=== PATIENT | female | born 1935 | race Caucasian/White ===

== ENCOUNTER 2025-06-29 12:40 | Emergency (ER) | payer MEDICARE, SELFPAY ==
--- NOTE | ~2025-06-29 | CT_ITS ---
EXAMINATION: CT ABDOMEN AND PELVIS WITHOUT CONTRAST CLINICAL INFORMATION: Right flank pain COMPARISON: None available. TECHNIQUE: Multidetector volumetric imaging was performed from the superior aspect of the liver through the pubic symphysis. Sagittal and coronal reformatted images were obtained on the technologist's workstation. This CT examination was performed using dose optimization techniques as appropriate, variously including the following: *Automated exposure control *Adjustment of mA and/or kV according to patient size (this includes techniques or standardized protocols for targeted exams where dose is matched to indication/reason for exam; i.e. extremities or head) *Use of iterative reconstruction technique FINDINGS: LUNG BASES: Reticular and groundglass opacities are present in bilateral posterior lung bases probably related to atelectasis. LIVER, GALLBLADDER, AND BILIARY TREE: The liver is normal in size, shape, and attenuation. No focal hepatic lesion or biliary ductal dilatation is present. The gallbladder is unremarkable with no evidence of radiopaque gallstones, gallbladder wall thickening, or obvious pericholecystic inflammatory changes. PANCREAS: There appears to be a cystic lesion in the head of the pancreas measures 3.0 x 2.7 x 4.2 cm. There is atrophy of the neck region of the pancreas. There is a second circumscribed cystic lesion on the deep surface of the pancreatic tail 1.2 cm in diameter. SPLEEN: Unremarkable. ADRENAL GLANDS: Unremarkable. KIDNEYS AND URETERS: There is a lower pole the left kidney is mixed density, soft tissue and fat density, 13 mm diameter. There is a 2 mm nonobstructing stone in the mid right kidney. BLADDER: Unremarkable. GASTROINTESTINAL TRACT: Numerous pseudodiverticula are present in the sigmoid colon. The appendix is not identified. There is a small hiatal involving gastric cardia. ABDOMINAL WALL: No significant hernia is appreciated. LYMPH NODES: Normal. VASCULAR: Moderate to severe vascular calcifications are evident. Infrarenal abdominal aorta demonstrates focal fusiform dilation measuring 3 cm. PELVIC VISCERA: Uterus is surgically absent. The ovaries demonstrate coarse calcifications. OSSEOUS STRUCTURES: Severe degenerative changes are present in the imaged spine. There is also mild levoscoliosis. There is severe degenerative change in the left hip joint with axial joint space narrowing and marginal osteophytes. CT/CT abdomen pelvis wo IV con IMPRESSION: There is a 2 mm nonobstructing stone in the mid right kidney. The appendix is not clearly identified. No inflammatory changes are present around the cecum. There are 2 cystic lesions in pancreas, 4.2 cm lesion in the head and a 1.2 cm lesion in the tail. Follow up nonemergent pancreatic MRI without and with IV contrast. Mild abdominal aortic aneurysm. There is short focal fusiform dilation of the infrarenal abdominal aorta measuring 3.0 cm. Sigmoid diverticulosis without inflammatory changes. Densities in the dependent portions of the lung bases is probably related to atelectasis, correlate for signs and symptoms to rule out pneumonia. Fleischner guidelines were followed. Electronically signed by: Ashutosh Nieves MD 06/29/2025 05:21 PM EDT
[2025-06-29 13:11] VITALS: BP 152/72; PULSE 70; RESP 16; TEMP 36.3; O2SAT 96; BMI 31.5
--- NOTE | 2025-06-29 13:19 | ED.GENADULT ---
HPI - General Adult General Chief complaint: Abdominal Pain Stated complaint: kidney stones Time Seen by Provider: 06/29/25 16:02 Source: patient, RN notes reviewed and old records reviewed Mode of arrival: ambulatory Limitations: no limitations History of Present Illness ED Provider: Terrell NOVAK narrative: 89-year-old female presents for evaluation of right lower back/hip pain for the last 3 days. She denies any trauma, falls or heavy lifting. She denies doing anything out of the ordinary. Her pain radiates somewhat down into the right upper leg/thigh. Pain is constant but worse with movement. Denies any fevers, chills nausea vomiting, diarrhea pain Denies any burning with urination or blood in the urine she reports that she had an incidental finding of a kidney stone a few months ago on a CT scan she is concerned that this has been causing her pain today she took some Tylenol without any significant improvement Related Data Previous Rx's ?Medication ?Instructions ?Recorded cyclobenzaprine 5 mg tablet 5 mg PO TID PRN muscle spasm #10 06/29/25 tabs Allergies Allergy/AdvReac Type Severity Reaction Status Date / Time No Known Allergies Allergy Verified 06/29/25 13:13 Review of Systems Constitutional: Constitutional: Denies body ache(s), Denies chills, Denies fever(s) and Denies headache(s) Eyes: Eyes: Denies blurry vision ENT: Denies vertigo, Denies dizziness, Denies dry mouth and Denies headache(s) Cardiovascular: Cardiovascular: Denies chest pain and Denies dyspnea on exertion Respiratory: Respiratory: Denies cough and Denies dyspnea on exertion Gastrointestinal: Gastrointestinal: Reports abdominal pain and Denies vomiting Genitourinary: Genitourinary: Denies hematuria, Denies difficulty voiding, Denies dysmenorrhea, Denies dysuria, Denies pelvic pain and Reports flank pain Musculoskeletal: Musculoskeletal: Reports back pain Integumentary/Breasts: Skin/Breast: Denies rash Neurologic: Denies vertigo, Denies dizziness and Denies headache(s) [facility] Social History Social History Smoked in Last 30 Days: No Use of substances other than those prescribed or required for medical reasons: No Advance Directives: No Advance Directives Information Provided: Yes Do you have a plan to hurt others: No Plan Physical Exam ED Vital Signs: Vital Signs - 24 hr 06/29/25 13:11 10/27/25 16:24 06/29/25 17:51 Temperature 97.3 F 97.6 F Pulse Rate 70 69 94 Respiratory Rate 16 18 16 Blood Pressure 152/72 H 155/71 H 139/64 Pulse Oximetry 96 95 94 Oxygen Delivery Method Room Air Room Air Room Air BMI result Body Mass Index 31.5 Const General: healthy appearing, comfortable, no acute distress, alert and awake Nutritional Appearance: well nourished Orientation/consciousness: patient oriented x3 HENMT Head: Yes normocephalic and Yes atraumatic Eyes Eyelids: Yes eyelids normal Conjunctivae: conjunctivae normal Sclerae: sclerae normal Corneas: corneas normal Pupils: Equal, round and reactive pupils present EOM: EOMs intact bilaterally Neck Neck: Yes full ROM Resp Effort & Inspection: normal respiratory effort, able to speak in complete sentences and not labored Cardio Rate: regular rate Rhythm: regular rhythm GI Other: positive CVA tenderness on right Inspection: No distended Palpation (GI): Soft to palpation, not firm, Tenderness to palpation present (GI) in the RLQ; not in the LLQ, not in the LUQ and not in the RUQ, no guarding and not rigid General: Yes CVA tenderness on the right Back/Spine/Pelvis Other: there is some right lumbar paraspinous region tenderness. No vertebral tenderness. No step-offs or deformities. Negative straight leg raise Back: CVA tenderness Skin General skin exam: elasticity normal Neuro General: patient oriented x3 Cranial nerves: Yes Equal, round and reactive pupils present and Yes Bilaterally intact EOM present Cognition (Neuro): normal cognition Extrem Other: mild tenderness to palpation of the right hip without deformity. Moving all extremities well without any obvious deformities Course Course Course Narrative: Rapid medical examination performed in triage by Erica Marroquin PA-C. Patient is an 89 year old assigned female at presenting to the emergency department with right flank pain. Detailed physical exam and review of systems are deferred to the computational sciences professor. Labs ordered. Patient placed back in the waiting room pending room availability and results. Reevaluation(s) Reevaluation #1: patient's CT scan does not show any acute findings to explain her pain. She does have multiple incidental findings including a lesion in the pancreas, a 3 cm aortic aneurysm, nonobstructing renal calculi. All these were discussed with the patient I think her pain is mostly musculoskeletal in origin. The patient be discharged to follow up with outpatient providers. 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 She reports that she has been coughing for 6 months but states that has actually been improving and she is not coughing as much. No fevers, shortness of breath or chills. We will not treat for pneumonia Time: 17:27 Medical Decision Making Medical Decision Making [facility] Narrative: 89-year-old female presents for evaluation of atraumatic right lower back /hip pain. She appears quite comfortable, vital signs are stable. She has some tenderness in the lumbar region, right hip and right lower abdomen. Negative straight leg raise does have some CVA tenderness in the right but I suspect this may be due to muscular origin. In his unlikely that the patient's pain has been constant for 3 days without hematuria and still related to obstructive uropathy. I suspect her pain is more likely a muscle strain, bursitis or possibly even constipation. Her labs are reassuring, no leukocytosis or left shift. No significant anemia. Renal function within normal limits. We will get a CT scan of the abdomen pelvis to better evaluate. Urinalysis shows trace esterase but no bacteria, no hematuria Differential Diagnosis Differential Diagnoses: The differential diagnosis associated with the presentation includes muscle strain Sciatica Hip bursitis Lumbar strain Constipation Obstructive uropathy UTI Cystitis Acute appendicitis less likely Lab Data [facility] Lab Attestation statement: I reviewed the patient's lab results. as above 06/29/25 13:59 06/29/25 14:34 Labs: Lab Results 06/29/25 06/29/25 06/29/25 Range/Units 13:59 14:34 14:46 WBC 7.4 (4.8-10.8) X10*3/uL RBC 4.43 (4.20-5.50) X10*6/uL Hgb 13.3 (12.0-16.0) g/dl Hct 40.3 (37.0-47.0) % MCV 91.0 (80.0-98.0) fL MCH 30.0 (27.0-33.0) pg MCHC 33.0 (31.0-35.0) g/dl RDW 15.1 (11.0-16.0) % Plt Count 165 (160-400) X10*3/uL MPV 11.1 (9.4-12.3) fL Immature Gran % (Auto) 0.4 (0.0-0.4) % Neut % (Auto) 52.4 (45-73) % Lymph % (Auto) 34.4 (20-40) % [place] % (Auto) 10.7 (2-11) % Eos % (Auto) 1.6 (0-4) % Baso % (Auto) 0.5 (0-2) % Lymph # (Auto) 2.5 (1.2-4.9) X10*3/uL [place] # (Auto) 0.8 (0.1-1.2) X10*3/uL Eos # (Auto) 0.1 (0.0-0.4) X10*3/uL Baso # (Auto) 0.0 (0.0-0.2) X10*3/uL Abs Immat Gran (auto) 0.03 (0.00-0.03) X10*3/uL Absolute Neuts (auto) 3.9 (2.0-8.3) x10*3/uL Absolute Nucleated RBC 0.000 (0.0-0.012) X10*3/uL Nucleated RBC % (auto) 0.0 (0.0-0.2) /100WBC Sodium 142 (135-145) mmol/L Potassium 4.2 (3.3-5.1) mmol/L Chloride 106 (96-108) mmol/L Carbon Dioxide 29 (22-29) mmol/L Anion Gap 11 L (12-20) BUN 15 (9-16) mg/dL Creatinine 0.55 (0.5-1.4) mg/dL Estim Creat Clear Calc 72.5 Estimated GFR > 60 Random Glucose 125 H (60-115) mg/dL Calcium 9.2 (8.4-10.2) mg/dL Magnesium 2.0 (1.6-2.6) mg/dL Total Bilirubin 1.0 (0.0-1.0) mg/dL AST 34 H (5-31) U/L ALT 24 (0-31) U/L Alkaline Phosphatase 89 (39-117) U/L Total Protein 7.4 (6.5-8.0) g/dL Albumin 4.4 (3.5-5.0) g/dL Urine Color Yellow Urine Appearance Clear Urine pH 5.5 (5.0-9.0) Ur Specific [place] 1.015 (1.005-1.025) Urine Protein Negative (Neg-Trace) mg/dL Urine Glucose (UA) Negative (Negative) mg/dL Urine Ketones Negative (Negative) mg/dL Urine Blood Negative (Negative) Urine Nitrite Negative (Negative) Ur Leukocyte Esterase Trace H (Negative) Urine RBC 0-2 (0-2) /HPF Urine WBC 0-5 (0-5) /HPF Ur Squamous Epith Cells 0-2 (0-2) /HPF Urine Bacteria None Seen (None Seen) Hyaline Casts 0-2 (0-2) /LPF Radiology Impression Discussion of test interpretation with radiology: I have reviewed the radiologist's reading. Radiologist Impression: FINDINGS: LUNG BASES: Reticular and groundglass opacities are present in bilateral posterior lung bases probably related to atelectasis. LIVER, GALLBLADDER, AND BILIARY TREE: The liver is normal in size, shape, and attenuation. No focal hepatic lesion or biliary ductal dilatation is present. The gallbladder is unremarkable with no evidence of radiopaque gallstones, gallbladder wall thickening, or obvious pericholecystic inflammatory changes. PANCREAS: There appears to be a cystic lesion in the head of the pancreas measures 3.0 x 2.7 x 4.2 cm. There is atrophy of the neck region of the pancreas. There is a second circumscribed cystic lesion on the deep surface of the pancreatic tail 1.2 cm in diameter. SPLEEN: Unremarkable. ADRENAL GLANDS: Unremarkable. KIDNEYS AND URETERS: There is a lower pole the left kidney is mixed density, soft tissue and fat density, 13 mm diameter. There is a 2 mm nonobstructing stone in the mid right kidney. BLADDER: Unremarkable. GASTROINTESTINAL TRACT: Numerous pseudodiverticula are present in the sigmoid colon. The appendix is not identified. There is a small hiatal involving gastric cardia. ABDOMINAL WALL: No significant hernia is appreciated. LYMPH NODES: Normal. VASCULAR: Moderate to severe vascular calcifications are evident. Infrarenal abdominal aorta demonstrates focal fusiform dilation measuring 3 cm. PELVIC VISCERA: Uterus is surgically absent. The ovaries demonstrate coarse calcifications. OSSEOUS STRUCTURES: Severe degenerative changes are present in the imaged spine. There is also mild levoscoliosis. There is severe degenerative change in the left hip joint with axial joint space narrowing and marginal osteophytes. CT/CT abdomen pelvis wo IV con IMPRESSION: There is a 2 mm nonobstructing stone in the mid right kidney. The appendix is not clearly identified. No inflammatory changes are present around the cecum. There are 2 cystic lesions in pancreas, 4.2 cm lesion in the head and a 1.2 cm lesion in the tail. Follow up nonemergent pancreatic MRI without and with IV contrast. Mild abdominal aortic aneurysm. There is short focal fusiform dilation of the infrarenal abdominal aorta measuring 3.0 cm. Sigmoid diverticulosis without inflammatory changes. Densities in the dependent portions of the lung bases is probably related to atelectasis, correlate for signs and symptoms to rule out pneumonia. Fleischner guidelines were followed. Discharge Plan Discharge Clinical Impression: Low back pain Patient Disposition: Home, Self-Care Instructions: Acute Low Back Pain (ED) Additional Instructions: your CT scan did not show any findings to explain your pain. You do have a nonobstructing stone in the right kidney. 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 You have a 3 cm aortic aneurysm that should be followed, but will likely not require intervention talk to your primary doctor about these findings. You may continue using Tylenol for pain. You may use cyclobenzaprine as needed for muscle spasms. This is could a take before bed because it will make you drowsy Prescriptions: New cyclobenzaprine 5 mg tablet 5 mg PO TID PRN (Reason: muscle spasm) Qty: 10 0RF Print Language: Sinhala
[2025-06-29 14:03] LABS: MANUAL DIFF FLAG NO
[2025-06-29 14:05] LABS: Hematocrit 40.3 % (37.0-47.0); Hemoglobin 13.3 g/dl (12.0-16.0); Imm Gran Abs Auto 0.03 X10*3/uL (0.00-0.03); Imm Gran Pct Auto 0.4 % (0.0-0.4); Lymphocytes Absolute Auto 2.5 X10*3/uL (1.2-4.9); Mean Corpuscular HGB Conc 33.0 g/dl (31.0-35.0); Mean Corpuscular Hemoglobin 30.0 pg (27.0-33.0); Mean Corpuscular Volume 91.0 fL (80.0-98.0); NRBC Abs Auto 0.000 X10*3/uL (0.0-0.012); NRBC Pct Auto 0.0 /100WBC (0.0-0.2); Platelet Count 165 X10*3/uL (160-400); Red Blood Count 4.43 X10*6/uL (4.20-5.50); White Blood Count 7.4 X10*3/uL (4.8-10.8)
[2025-06-29 15:05] LABS: Alanine Aminotransferase 24 U/L (0-31); Albumin Level 4.4 g/dL (3.5-5.0); Alkaline Phosphatase 89 U/L (39-117); Anion Gap 11 (12-20); Aspartate Amino Transferase 34 U/L (5-31); Blood Urea Nitrogen 15 mg/dL (9-16); Calcium 9.2 mg/dL (8.4-10.2); Carbon Dioxide 29 mmol/L (22-29); Chloride 106 mmol/L (96-108); Creatinine Clr Calc Pharmacy 72.5; Estimated Glomerular Filt Rate > 60; Magnesium 2.0 mg/dL (1.6-2.6); Potassium 4.2 mmol/L (3.3-5.1); Sodium 142 mmol/L (135-145); Total Protein 7.4 g/dL (6.5-8.0)
[2025-06-29 16:01] LABS: Appearance Urine Clear
[2025-06-29 16:02] LABS: Glucose Urine UA Negative (Negative); PH 5.5 (5.0-9.0); Specific Gravity - Urine 1.015 (1.005-1.025); UMIC TRIGGER UACC YES
--- NOTE | 2025-06-29 16:15 | PC.NURSE ---
Assumed care of patient. Pt is 89 F with R side/R lower back 9/10 pain since Jose, believes she may have kidney stones. Pt denies pain when urinating or difficulty urinating. A+Ox4, calm, cooperate, ambulates with a walker. Pt denies any CP or SOB. RR even and unlabored.
[2025-06-29 16:24] VITALS: BP 155/71; PULSE 69; RESP 18; O2SAT 95
[2025-06-29 17:51] VITALS: BP 139/64; PULSE 94; RESP 16; TEMP 36.4; O2SAT 94
[2025-06-29 18:17] VITALS: BP 139/64; PULSE 94; RESP 16; TEMP 36.4; O2SAT 94
--- OUTSIDE RECORDS SUMMARY | 2025-06-29 18:47 | XMS_ITS | Clinical Summary ---
Author Organization [facility] Address [address] [place] [address] Care Team Providers Care User Experience Architect Name Role Phone Unavailable Primary Care Provider Unavailabl e Social History Tobacco Use Types Packs/Day Years Used Date Smoking Tobacco: Never Assessed Comments Unknown Sex and Gender Information Value Date Recorded Sex Assigned at Not on file Legal Sex Female 5:31 PM EDT Gender Identity Not on file Sexual Orientation Not on file Plan of Treatment Health Maintenance Due Date Last Done Comments Advance Care Planning 1935 DTaP/Tdap/Td Vaccines (1 - Tdap) 1956 Pneumococcal Vaccines 50+ (1 of 1 - PCV) 1987 Zoster (Shingles) Vaccine (1 of 2) 1987 RSV Vaccine 50 years and old er and Patients (1 - 1-dose 75+ series) 2012 COVID-19 Vaccine (2023-2 5 season) 2025 Hepatitis B Vaccines Aged Out No long er eligible based on patient's age to complete this topic
== END 2025-06-29 18:18 | disposition home or self-care (01) ==
PROVIDERS: Physician Assistant Medical; Emergency Provider Student in an Organized Health Care Education/Training Program; PCP Nurse Practitioner Gerontology
DX: M54.50 Low back pain, unspecified (principal); M25.551 Pain in right hip; M79.604 Pain in right leg; M79.10 Myalgia, unspecified site; R10.A1 Flank pain, right side; Z79.899 Other long term (current) drug therapy
CPT/HCPCS: 36415; 74176; 80053; 81001; 81003; 83735; 85025; 99284

== ENCOUNTER → 2025-06-29 16:21 | Outpatient (BNV) | payer MEDICARE, SELFPAY | PROVIDERS: Emergency Provider Student in an Organized Health Care Education/Training Program; PCP Nurse Practitioner Gerontology; Visit Provider Radiology Diagnostic Radiology | DX: N20.0 Calculus of kidney (principal); I71.40 Abdominal aortic aneurysm, without rupture, unspecified; K57.30 Diverticulosis of large intestine without perforation or abscess without bleeding; R91.8 Other nonspecific abnormal finding of lung field; K86.2 Cyst of pancreas | CPT/HCPCS: 74176 ==